=== PATIENT | male | born 1985 | race Caucasian/White ===

== ENCOUNTER 2017-09-04 14:30 | Emergency (ER) | payer SELFPAY ==
[2017-09-04] MEDS ORDERED: TDAP ADULT 0.5 ML INJ (BOOSTRIX) IM ONE (15:40)
--- NOTE | 2017-09-04 16:04 | EDPHY ---
General Time Seen by Provider: 09/04/17 15:41 Narrative: CHIEF COMPLAINT: Left leg laceration HISTORY OF PRESENT ILLNESS: Patient presents with complaints of laceration to the left leg. This happened less than 2 hr ago. He says he dropped a glass Coke bottle. Shattered and caused a laceration to the left medial ankle. It is minimally painful. Has bled minimally as well. No numbness or tingling distally. No injury elsewhere. He does not think that there is any glass in the wound but he is not sure. No other associated complaints or modifying factors. TIME OF INJURY: Less than 2 hr prior to arrival TETANUS STATUS: Questionable MEDICAL/SURGICAL/SOCIAL HISTORY: Denies any medical diagnoses REVIEW OF SYSTEMS: Ten systems reviewed and are negative unless otherwise noted in the HPI EXAMINATION General Appearance: Alert, no distress Head: normocephalic, atraumatic Cardiovascular: Pulses normal throughout. Brisk cap refill Neurological: A&O, sensory symmetric, strength symmetric Skin: Warm and dry, no rash. 3 cm laceration of the left medial ankle minimal bleeding. No pulsatile bleeding. No foreign body palpated. Neurovascular intact distally. Extremities: Minimally tender over the area of laceration of the left medial ankle. Range of motion is symmetric in the ankles. DIFFERENTIAL DIAGNOSES: Including but not limited to laceration, complex laceration, laceration with foreign body, laceration with tendon injury MDM: 3:40 p.m. Acute laceration to the left medial ankle that occurred less than 2 hr ago. This was caused by a broken glass bottle, thus I have ordered x-ray to rule out foreign body. This is nonpulsatile bleeding. He is neuro intact distally. I have anesthetize the area. We will proceed with irrigation 4:15 p.m. Left medial ankle laceration that has been repaired without difficulty. X-ray did not show any foreign body. I was able to probe the wound with sterile glove and I do not appreciate any foreign bodies. This was closed with excellent approximation of wound borders. Tolerated well. Neurovascular intact distally after procedure. Wound care discussed. Follow up here in 7 days for suture removal. PROCEDURE: Laceration repair Consent: Verbal Location: Left medial ankle Length of repair: 3 cm Complexity: Complex Layer involvement: Single Anesthesia: Local. 0.5% Marcaine. 7 mL Irrigation: Extensive Debridement: None Procedure description: Following good anesthesia, the wound was copiously irrigated. Wound bed was explored with a sterile glove, and there is no foreign body noted. No tendinous injury. Wound borders were approximated well with good hemostasis. Tolerated well without complication. Suture/Staple material: 4-0 Prolene, 4 simple ruptured sutures Wound care: Routine as discussed Suture/Staple removal: 7 Days SUPERVISION: This patient was independently evaluated without direct involvement of or examination by the attending physician. ED Precautions: Worsening pain. Erythema, edema, cyanosis, pallor, paresthesia or anesthesia. - Diagnostics Imaging Results: Imaging Impressions Ankle X-Ray 09/04/17 15:40 Impression: Negative. No foreign body. - History Smoking Status: Never smoked - Objective Vital Signs: Initial Vital Signs Temperature (C) 98.2 F 09/04/17 14:39 Heart Rate 81 09/04/17 14:39 Respiratory Rate 16 09/04/17 14:39 Blood Pressure 164/89 H 09/04/17 14:39 O2 Sat (%) 96 09/04/17 14:39 O2 Delivery Mode Room Air Allergies/Adverse Reactions: No Known Allergies Allergy (Unverified 09/04/17 14:38) Home Medications: Medication Instructions Recorded NK [No Known Home Meds] 09/04/17 Medications Given: Discontinued Medications Diphtheria/Tetanus/Acell Pertussis (Boostrix) 0.5 ml IM .ONCE ONE Stop: 09/04/17 15:41 Last Admin: 09/04/17 16:04 Dose: 0.5 ml Departure - Departure Disposition: Home, Routine, Self-Care Clinical Impression: Laceration of ankle, left Qualifiers: Encounter type: initial encounter Qualified Code(s): S91.012A - Laceration without foreign body, left ankle, initial encounter Condition: Good Instructions: Care For Your Stitches (ED), Laceration (ED) Additional Instructions: 1. Thin layer of bacitracin once daily for the next 2 days 2. Keep the wound covered while showering for the next 3 days 3. Daily wound care as discussed 4. Return here for suture removal in 7 days 5. Return here for signs of infection as discussed including warmth, redness, fever, drainage from the site 6. return here for increasing pain surrounding the laceration 7. Do not submerge the wound in any water, hot tub, swimming pool until sutures removed Referrals: NONE *PRIMARY CARE P,. [Primary Care Provider] - As per Instructions Physician,Emergency Dept, [Medical Doctor] - As per Instructions (7 days for suture removal)
[2017-09-04 16:40] VITALS: BP 130/77
== END 2017-09-04 16:39 | disposition home or self-care (01) ==
DX: S91.012A Laceration without foreign body, left ankle, initial encounter (principal); Z23 Encounter for immunization; W20.8XXA Other cause of strike by thrown, projected or falling object, initial encounter